=== PATIENT | male | born 1995 | race Caucasian/White ===

== ENCOUNTER 2016-06-21 19:11 | Emergency (ER) ==
[2016-06-21 19:14] VITALS: BP 123/77; TEMP 98.9; BMI 28.2
--- NOTE | 2016-06-21 19:36 | ED.PDOC ---
General ED Provider: Dr. MATTHEW DIAZ Chief Complaint: Fever Stated Complaint: Patient is a 21 year old female who comes to the ER with c/o abdominal pain, cramps and headache with a fever of 103. Took tylenol with some relief. states he vomited after eating a chicken. Time Seen by Physician: 19:33 Mode of Arrival: Walk-In Information Source: Patient Exam Limitations: No limitations Nursing and Triage Documentation Reviewed and Agree: Yes Miscellaneous Complaint Exam - Febrile Illness/Adult Complaint/Exam Onset/Duration: 1 day Symptoms Are: Resolved Initial Severity: Moderate Current Severity: Mild Aggravating: Reports: None Alleviating: Reports: None Associated Signs and Symptoms: Reports: Headache, Sore throat, Nausea, Vomiting. Denies: Fluid intake, Short of air, Cough, Chills, Diaphoresis, Dysuria, Arthralgia, Stiff neck, Myalgia, Rash, Altered mental status Pseudomonas Risk Factors: Reports: None Serious Bacterial Infection Risk Factors: Reports: None Current Antibiotic Use: Yes Review of Systems - Review Of Systems Constitutional: Reports: No symptoms Eyes: Reports: No symptoms Ears, Nose, Mouth, Throat: Reports: No symptoms Respiratory: Reports: No symptoms Cardiac: Reports: No symptoms GI: Reports: No symptoms : Reports: No symptoms Musculoskeletal: Reports: No symptoms Skin: Reports: No symptoms Neurological: Reports: Anxiety, Headache Endocrine: Reports: No symptoms Hematologic/Lymphatic: Reports: No symptoms All Other Systems: Reviewed and Negative Past Medical History - Past Medical History Endocrine: Reports: None Cardiovascular: Reports: None Respiratory: Reports: None Hematological: Reports: None Gastrointestinal: Reports: None Genitourinary: Reports: None Neuro/Psych: Reports: None Musculoskeletal: Reports: None Cancer: Reports: None - Surgical History General Surgical History: Reports: None - Family History Family History: Reports: None - Social History Smoking Status: Never smoker Hx Substance Use: No Alcohol Screening: Occasionally Physical Exam - Physical Exam Appearance: Ill-appearing, Well-nourished Ill-appearing: Mild Pain Distress: Mild Eyes: LAURYN, EOMI, Conjunctiva clear ENT: Ears normal, Nose normal, Oropharynx normal Respiratory: Airway patent, Breath sounds clear, Breath sounds equal, Respirations nonlabored Cardiovascular: RRR, Pulses normal, No rub, No murmur GI/: Soft, Nontender, No masses, Bowel sounds normal, No Organomegaly Musculoskeletal: Normal strength, ROM intact, No edema, No calf tenderness Skin: Warm, Dry, Normal color Neurological: Sensation intact, Motor intact, Reflexes intact, Cranial nerves intact, Alert, Oriented Psychiatric: Affect appropriate, Mood appropriate Critical Care Note - Critical Care Note Total Time (mins): 0 Course - Course Orders, Labs, Meds: Lab Review 06/21/16 19:25 Influenza A (Rapid) Negative Influenza B (Rapid) Negative Orders Category Date Time Status FLU A & B RAPID TEST [RAPID FLU A/B] Stat LAB 06/21/16 19:25 Completed MOLECULAR GROUP A STREP Stat LAB 06/21/16 19:25 Results STREP SCREEN Stat LAB 06/21/16 19:25 Results Vital Signs: Temp Pulse Resp BP Pulse Ox 06/21/16 19:12 98.9 F 93 H 20 123/77 96 Departure - Departure Time of Disposition: 20:04 Disposition: HOME SELF-CARE Discharge Problem: Viral syndrome Instructions: Viral Syndrome (ED) Condition: Stable Pt referred to PMD for follow-up: Yes Additional Instructions: Push fluids Alternate Tylenol to Motrin as needed for fever or pain Follow up with PCP in 3 days Allergies/Adverse Reactions: Allergies amoxicillin Adverse Reaction (Verified 06/21/16 19:14) Penicillins Adverse Reaction (Verified 06/21/16 19:14) Home Medications: Ambulatory Orders 1 [No Reported Medications] 06/21/16 Disposition Discussed With: Patient, Family
[2016-06-21 19:58] LABS: FLU INTERNAL QC INTERNAL QC VALID; RAPID FLU A NEGATIVE (NEGATIVE); RAPID FLU B NEGATIVE (NEGATIVE)
== END 2016-06-21 20:25 | disposition home or self-care (01) ==
LOC: ED 19:11
DX: B34.9 Viral infection, unspecified (principal)
CPT/HCPCS: 87651; 87804; 87880; 99283